=== PATIENT | male | born 1960 | race Caucasian/White ===

== ENCOUNTER → 2017-04-30 | Outpatient (CLI) | payer OTHER ==
[~2017-04-30] MED LIST: AMIT25TA9 PO; ASCA500 PO; ASPI81TA21 PO; B-CO1CAP5 PO; BRIM0.2S OPB; CANA1TAB3 PO; CHOL20007 PO; CYAN10005 PO; ERGO500037 PO; GLUCTAB7 PO; INSULIN NPH SC; LISI-725 PO; MELO15TA10 PO; METF1000 PO; MULT-506 PO; NIAC500T7 PO; OMEG10007 PO; PREG150C PO; PYRI100T4 PO; SAW450CA5 PO; SYMIN160 INH; TEST5GEL TOP; VITA400C3 PO
--- NOTE | 2017-05-01 05:59 | PAP/PSG TECHNICIAN REPORT ---
[facility] Health Science Specialist Polysomnogram Report Study name: None Report date: 05/01/2017 Study date: 04/30/2017 Referring Physician: Wayne Lazcano MD Name: JONATAN HOYT Interpreting Physician: Matthew Yu D.O. Date of : 1960 Health Science Specialist: Lilian Hathaway [facility]. Sex: Male Age: 56 StudyType: PSG PAP Weight: 285 lbs Height: 56 years, Height 5' 11" BMI: 39.75 Medications: Victoza 18 MG/3ML, Vitamin B-12 1000 MCG, Topirate 25 mg, Vitamin C 1000 mg, Fenofibrate 145 mg, Humulin 100 units, Alpha Betic 200 mg, Darin Gel 20.25 MG/1.25GM, Aspirin 81 mg, Combigan 0.2-0.5%, [facility] Fish Oil 1000 mg, Gabapentin 300 mg, Glucosamine 1500 complex, Invokana 300 mg, Lisinopril 20 mg, Lorazepam 0.5 mg, Lyrica 150 mg, Magnesium 500 mg, Meloxicam 15 mg, Metanx 3-90.314-2-35 mg, Metformin 1000 mg, Omeprazole 20 mg, Saw Crawford 450 mg, Vitamin D 33308 unit, Vitamin D3 2000 unit, Vitamin E 400 units Patient History 56 yr. old male here tonight for an updated titration sleep study in room 6. Test will be started at patients' current pressure of 13 CmH20 per order. Patient will change his own pressure if he starts to feel tired or has morning headaches and will decrease settings if he loses weight. Patients ESS 07/10. Parameters Monitored NPSG: E1-M2, E2-M1, Fp1-M2, Fp2-M1, F3-M2, F4-M2, F4-M1, C3-M2, C4-M2, C4-M1, O1-M2, O2-M2, O2-M1, T3-M2, T4-M1, P3-M2, P4-M1, CHIN1, CHIN2, HR, EKG, Legs, PFLOW, SNOR, FLOW, CFLOW, Tidal Volume, THOR, ABDO, SpO2, PLTH, CPRESS, ETCO2 Wave, ETCO2, pH Sleep Architecture Sleep Stages Time at Lights Off 10:46:56 PM STAGES Time (min.) TST (%) Time at Lights On 5:42:56 AM Wake 48.0 -- Total Recording Time (TRT) 415.50 min. N1 36.0 10 Total Sleep Period (TSP) 412.5 min. N2 215.5 59 Total Sleep Time (TST) 367.5min. N3 52.0 14 Awake Time 48.0 min. REM 64.0 17 Wake after Sleep Onset 45.0 min. Sleep Efficiency (SE) 88 % Sleep Onset Latency (AMI) 3.5 min. Number of Stage 1 Shifts None Awakenings 19 Stage Changes 78 Number of REM periods 4 REM 64.0 17 REM Latency 91.5 min. NREM 303.5 83 Body Position Analysis Supine Right Left Side Prone Vertical Total Sleep Time (min.) 64.8 114.0 214.6 328.56 0.0 0.4 Total Sleep Time (%) 11% 31% 58% 89 0% N/A% Total Sleep Time REM (min.) 18.0 34.5 11.5 None 0.0 0.0 Total Sleep Time NREM (min.) 20.9 79.5 203.1 None 0.0 0.0 Intermittent Wake (min.) 25.8 6.4 15.4 None 0.0 0.4 Total Sleep Period (%) 16% None None None None None Arousals Myoclonus (PLM) * Events Count Index Events Count Index Spontaneous 6 1 Events Awake (PLMW) 65 81.3 Respiratory 0 0.0 Events Asleep w/ Arousal (PLMA) 30 4.9 PLM 30 5 Events Asleep w/o Arousal (PLMS) 68 11.1 Snoring 1 0 Total Asleep 98 16.0 Total 36 6 Total 163 24 Respiratory Analysis * CA OA MA CH H RERA Total Count 0 0 0 0 1 0 1 Index 0.0 0.0 0.0 0 0.2 0 0.2 Mean Duration 0.0 0.0 0.0 0.00 33.5 0.0 33.5 Longest Duration 0.0 0.0 0.0 0.00 0.0 0.0 33.5 Respiratory Event Summary Total Supine ~Supine Right Left Prone REM NREM Apneas Count 0 0 0 0 0 N/A 0 0 Index 0.0 0 0 0.0 0.0 N/A 0 0 Hypopneas (4% Desat) Count 1 1 0 0 0 N/A 0 1 Index 0.2 1.5 0 0.0 0.0 N/A 0.0 0.2 Apneas & All Hypopneas Count 1 1 0 0 0 N/A 0 1 Index 0.2 2 0 0 0 N/A 0.0 0.2 Respiratory Events (Catia Designer+All Hyp+RERA) Count 1 1 0 0 0 N/A 0 1 Index 0.2 2 0 0.0 0.0 N/A 0.0 0.2 Respiratory Related Arousal Count 0 1 0 0 0 N/A 0 0 Index 0.0 0 0 0 0 N/A 0 0 Snoring Analysis Supine Right Left Prone REM NREM Total Snore duration 1.3 min Snores count 4 6 23 N/A 17 16 33 Snore mean duration 2.4 Sec Snores index 6 3 6 N/A 15.9 3.2 5.4 TST with snoring (%) 0.4% Desaturation Event Summary: Minimum %SpO2 Event Count Mean/Min/Max Duration(sec.) Desaturation Index % Time In Bed > 90 6 32.1 / 17.8 / 47.5 0.9 99.6 86 - 90 0 N/A 0.0 0.3 81 - 85 0 N/A 0.0 0.1 76 - 80 0 N/A 0.0 0.0 71 - 75 0 N/A 0.0 0.0 66 - 70 0 N/A 0.0 0.0 61 - 65 0 N/A 0.0 0.0 56 - 60 0 N/A 0.0 0.0 51 - 55 0 N/A 0.0 0.0 < 50 0 N/A 0.0 0.0 Total REM NREM Awake <50% 0.0 min. 0.0 min. 0.0 min. 0.0 min. 51 - 60% 0.0 min. 0.0 min. 0.0 min. 0.0 min. 61 - 70% 0.0 min. 0.0 min. 0.0 min. 0.0 min. 71 - 80% 0.0 min. 0.0 min. 0.0 min. 0.0 min. 81 - 90% 1.7 min. 0.5 min. 0.7 min. 0.5 min. 91 - 100% 407.7 min. 63.5 min. 302.8 min. 41.3 min. Average 93 92 93 93 Minimum SpO2 82 90 90 82 Desaturation Event Index 0.9 0.0 0.6 3.8 # Desat. Events below 89% N/A N/A N/A N/A Time(%) with Saturation below 89% 0.1 0.0 0.0 0.1 Time(min.) with Saturation below 89% 0.3 0.0 0.0 0.3 Time (mins) REM (mins) NREM (mins) % of TST SpO2 Below 90% 1 N/A N1 0.0 SpO2 Below 88% 0 0 0 0 Heart Rate Analysis Min (bpm) Max (bpm) Average (bpm) Awake 33 100 81 NREM 64 97 75 REM 68 90 77 Overall 64 97 75 Supplemental O2 Values Minimum O2 level: None Value Start Time End Time Health Science Specialist Comments Mr. Hoyt slept in the right, left, and supine positions. Cardiac arrhythmia and PLMs noted. No bruxism noted. CPAP was initiated at +[id number] and was not increased. Patient used his own nasal mask with chin strap. . Mr. Hoyt awoke to use the restroom once during the night. Mr. Hoyt stated, I had a fairly normal night. The final report will be interpreted and signed by a sleep physician. The completed physician report will then be placed in the patient medical record. Therapy Event: Therapy (cm H20) 13 Total Time at Pressure (min.) 415.3 TST at Pressure (min.) 367.5 # Periods 1 Sleep Onset (min.) 3.3 REM Onset (min.) 94.8 Sleep Efficiency % 88 Wakefulness (%) 11.5 Wakefulness (min.) 47.8 NREM 1 (%) 8.7 NREM 1 (min.) 36.0 NREM 2 (%) 51.9 NREM 2 (min.) 215.5 NREM 3 (%) 12.5 NREM 3 (min.) 52.0 REM (%) 15.4 REM (min.) 64.0 # Arousals 36 Arousal Index 5.9 # Snore 33 Snore Index 5.4 AHI 0.2 AHI Supine 1.5 AHI Non-Supine 0.0 NREM AHI 0.2 REM AHI 0.0 RDI 0.2 # Obstructive 0 # Central Ap 0 # Mixed 0 # Hypopneas 1 RERAS 0 Total Respiratory Events 1 Time Below SpO2 89.00% (min.) 0.0 Mean NREM SpO2 (%) 93 Mean REM SpO2 (%) 92 Mean Sleep SpO2 (%) 93 Min NREM SpO2 (%) 90 Min REM SpO2 (%) 90 Position Supine (min.) 38.9 Position Non-supine (min.) 328.6 LM Index Sleep 16.0 LM Index NREM 17.6 LM Index REM 8.4 Mean Heart Rate (bpm) 75 Min Heart Rate (bpm) 64
--- NOTE | 2017-05-04 17:42 | Sleep Study ---
Sleep Study Report Date of Service: 04/30/2017 Sleep Study Report CLINICAL DATA: The patient is a 56-year-old male who was referred for a CPAP titration by Dr. Lazcano. He has a longstanding history of sleep apnea. His current pressure is 13 centimeters. The patient has an [place] Sleepiness Scale score of 3. It appears that his last titration study was done in March 2007. SLEEP ARCHITECTURE: The total sleep period was 412.5 minutes. The total sleep time was 367.5 minutes. The sleep efficiency was borderline normal at 80 8 percent. The sleep latency was 3.5 minutes. Wake after sleep onset was 45 minutes. The REM latency was normal at 91.5 minutes. Sleep consisted of stage N1 10 percent, stage N2 59 percent, stage N3 14 percent, stage REM 17 percent. AROUSAL DATA: The patient had a total of 36 arousals including 6 spontaneous arousals, 30 PLM arousals, and 1 snoring arousal. The arousal index was 6. PLM DATA: The patient had a total of 98 periodic limb movements for a PLM index of 16. There were 30 arousals associated with limb movements for a PLM arousal index of 4.9. EKG: The underlying cardiac rhythm was normal sinus. Frequent PVCs were noted. This was throughout the entire course of the night although they lessened slightly near the end of the study. The cardiac rates 64-97 beats per minute an average of 75 beats per minute. RESPIRATORY DATA: The patient was treated with nasal CPAP which was started at 13 centimeters. He had a total of only 1 respiratory event, a hypopnea. Hypopneas were scored according to the 4 percent desaturation rule. The apnea-hypopnea index was 0.2 events per hour. OXIMETRY DATA: The average saturation for the night was 93 percent. The lowest recorded saturation was 82 percent which was cleared he artifact. The lowest true saturation was 89 percent. RETAIL RECEIVING CLERK COMMENTS: Patient slept on the right, left, and supine positions. Cardiac arrhythmia and PLMS noted. No bruxism noted. CPAP was initiated at 13 centimeters and was not increased. Patient used his own nasal mask with chin strap. He awakened to use the restroom 1 time during the night. The patient described it as a fairly normal night. IMPRESSIONS: 1. Obstructive sleep apnea-resolved with nasal CPAP at 13 centimeters 2. Periodic limb movement disorder 3. Cardiac arrhythmia-frequent PVCs COMMENTS: Patient did well during this study. He did have nasal CPAP initiated at 13 centimeters and he had only 1 event throughout the night on that pressure. Thus the pressure did not need adjustment. He had a modest number of limb movements but with relatively few arousals. He did have frequent PVCs thought the night. It is unknown if he has a history of cardiac arrhythmia. Clinical correlation is advised in that regard. RECOMMENDATIONS: 1. The patient should continue with his nasal CPAP at 13 centimeters. 2. Weight loss is advised in light of the patient's elevation of body mass index at 39.75. 3. Consideration is given to cardiac evaluation if he is not known to have the arrhythmia in the past. Copies To 1: Matthew Yu DO; Riley Joseph,Jr,D.O.; Wayne Lazcano MD
== END | disposition home or self-care (01) ==
LOC: C.NEUR 20:00
PROVIDERS: ATTEND Internal Medicine Critical Care Medicine
DX: G47.33 Obstructive sleep apnea (adult) (pediatric) (principal); G47.61 Periodic limb movement disorder; I49.8 Other specified cardiac arrhythmias

== ENCOUNTER → 2017-05-27 | Outpatient (CLI) | payer OTHER ==
--- NOTE | 2017-05-27 10:55 | DIAGNOSTIC IMAGING REPORT ---
CHEST 2 VIEWS ROUTINE CLINICAL HISTORY: R FLANK PAIN COMPARISON STUDY: 03/05/2016 FINDINGS: The cardiac and mediastinal contours are normal. There is no evidence of focal pulmonary consolidation. There is no evidence of failure. No pleural effusions are visualized.[ No free intraperitoneal air is visualized IMPRESSION: No active disease in the chest. Electronically signed by: Rickey Banuelos M.D. 05/27/2017 10:54 AM Dictated Date/Time: 05/27/2017 10:54 AM
== END | disposition home or self-care (01) ==
LOC: C.RAD1850 10:12
DX: R10.9 Unspecified abdominal pain (principal)

== ENCOUNTER → 2017-06-29 | Outpatient (CLI) | payer OTHER ==
--- NOTE | 2017-06-29 09:26 | DIAGNOSTIC IMAGING REPORT ---
CHEST 2 VIEWS ROUTINE CLINICAL HISTORY: COUGH dyspnea COMPARISON STUDY: 05/27/2017 FINDINGS: The bones soft tissues and hemidiaphragms are normal. The cardiomediastinal silhouette is normal. The lungs are clear. The pulmonary vasculature is normal. IMPRESSION: Negative chest. The above report was generated using voice recognition software. It may contain grammatical, syntax or spelling errors. Electronically signed by: Venancio Corrales M.D. 06/29/2017 9:25 AM Dictated Date/Time: 06/29/2017 9:23 AM
== END | disposition home or self-care (01) ==
LOC: C.RAD1850 09:13
DX: R05 Cough (principal)

== ENCOUNTER → 2017-07-08 | Outpatient (CLI) | payer OTHER | END | disposition home or self-care (01) | LOC: C.CPL 10:32 | DX: R07.9 Chest pain, unspecified (principal) ==

== ENCOUNTER → 2017-07-26 | Outpatient (CLI) | payer OTHER ==
[~2017-07-26] MED LIST changes: +ASPI-319 PO; -ASPI81TA21 PO
== END | disposition home or self-care (01) ==
LOC: C.LAB1850 09:29
PROVIDERS: ATTEND Internal Medicine Pulmonary Disease
DX: R05 Cough (principal)